=== PATIENT | male | born 1975 | race Two or more races ===

== ENCOUNTER 2024-07-03 17:04 | Inpatient (IN) | payer MEDICAID, OTHER ==
[~2024-07-03] VITALS: Ht 167.6 cm; Wt 68.8 kg
[2024-07-03 18:16] LABS: Basophils # (auto) 0.1 10 ^3/uL (0-0.2); Hemoglobin 16.3 g/dL (13.5-17.5); Lymphocytes # (auto) 2.1 10 ^3/uL (0.4-5.4); Red Blood Cells 4.69 10^6/uL (4.5-5.90)
[2024-07-03 18:18] LABS: Basophils % (auto) 0.5 % (0.0-2.0); Eosinophils # (auto) 0.4 10 ^3/uL (0-0.8); Eosinophils % (auto) 2.4 % (0.0-7.0); Hematocrit 46.2 % (41.0-53.0); Lymphocytes % (auto) 12.2 % (10.0-50.0); Mean Corpuscular Hemoglobin 34.8 pg (28.0-32.0); Mean Corpuscular Hgb Conc. 35.4 g/dL (32.0-36.0); Mean Corpuscular Volume 98.4 fL (80.0-100.0); Monocytes # (auto) 1.3 10 ^3/uL (0-1.3); Monocytes % (auto) 7.6 % (0.0-12.0); Neutrophils # (auto) 13.1 10 ^3/uL (1.6-8.6); Neutrophils % (auto) 77.3 % (37.0-80.0); Platelet Count (auto) 375 10^3/uL (140-450); Red Cell Distribution Width 13.9 % (11.8-14.3); White Blood Cell 16.9 10^3/uL (4.4-10.8)
[2024-07-03 18:34] LABS: Alanine Aminotransferase 34 U/L (7-40); Alkaline Phosphatase 103 U/L (46-116); Anion Gap 10 (5-15); Aspartate Aminotransferase 30 U/L (13-40); Blood Urea Nitrogen 9 mg/dL (9-23); Calcium 9.2 mg/dL (8.7-10.4); Carbon Dioxide 26 mmol/L (20-30); Chloride 108 mmol/L (98-107); Glucose 116 mg/dL (74-106); Lipase 29 U/L (12-53); Potassium 3.7 mmol/L (3.5-5.1); Sodium 144 mmol/L (136-145)
[2024-07-03 18:35] LABS: Albumin 4.6 g/dL (3.2-4.8); Bilirubin, Total 0.9 mg/dL (0.2-1.0); Total Protein 8.2 g/dL (5.7-8.2)
[2024-07-03 20:09] VITALS: PULSE 94; RESP 16; O2SAT 96
[2024-07-03] MEDS: SODIUM CHLORIDE 0.9% 1,000 ML IV ONE (20:15)
[2024-07-03] MEDS: diphenhdrAMINE HCL 50 MG/1 ML VL IV ONE (20:15)
[2024-07-03] MEDS: METOCLOPRAMIDE HCL 5MG/ml INJ 2ml VIAL IV ONE (20:15)
[2024-07-03] MEDS: GLUCAGON EMERG KIT 1mg/1ml IV ONE (21:35)
[2024-07-03 22:20] VITALS: PULSE 82; RESP 16; O2SAT 96
[2024-07-04] VITALS (10 sets, daily range): BP systolic 125–149; BP diastolic 79–95; PULSE 76–91; RESP 14–18; TEMP 97.7–98.9; O2SAT 92–100
[2024-07-04] MEDS: ONDANSETRON HCL 4 MG/2 ML VIAL IV PRN (00:37)
[2024-07-04] MEDS: SODIUM CHLORIDE 0.9% 1,000 ML IV SCH (00:37)
[2024-07-04 06:27] LABS: Chloride 112 mmol/L (98-107); Potassium 3.7 mmol/L (3.5-5.1); Sodium 146 mmol/L (136-145)
[2024-07-04 06:28] LABS: Anion Gap 7 (5-15); Carbon Dioxide 27 mmol/L (20-30)
[2024-07-04 06:33] LABS: BUN/Creatinine Ratio 11.1 (10.0-20.0); Basophils # (auto) 0 10 ^3/uL (0-0.2); Basophils % (auto) 0.2 % (0.0-2.0); Blood Urea Nitrogen 9 mg/dL (9-23); Eosinophils % (auto) 0.8 % (0.0-7.0); Glucose 117 mg/dL (74-106); Monocytes # (auto) 1.3 10 ^3/uL (0-1.3)
[2024-07-04 06:39] LABS: Eosinophils # (auto) 0.1 10 ^3/uL (0-0.8); Hematocrit 45.9 % (41.0-53.0); Lymphocytes # (auto) 1.8 10 ^3/uL (0.4-5.4); Lymphocytes % (auto) 9.1 % (10.0-50.0); Mean Corpuscular Hemoglobin 35.1 pg (28.0-32.0); Mean Corpuscular Volume 100.5 fL (80.0-100.0); Monocytes % (auto) 6.5 % (0.0-12.0); Neutrophils # (auto) 16.2 10 ^3/uL (1.6-8.6); Neutrophils % (auto) 83.4 % (37.0-80.0); Nucleated Red Blood Cells % 0.1 %; Platelet Count (auto) 342 10^3/uL (140-450); Red Blood Cells 4.56 10^6/uL (4.5-5.90); Red Cell Distribution Width 13.7 % (11.8-14.3); White Blood Cell 19.4 10^3/uL (4.4-10.8)
[2024-07-04] MEDS ORDERED: LORazepam 2MG/ML-1ML VIAL IV PRN (09:00)
[2024-07-04 09:10] LABS: Blood Alcohol < 3.0 mg/dL (<10); Triglycerides 106 mg/dL (< 150)
[2024-07-04 09:11] LABS: LDL Cholesterol 109 mg/dL (< 100)
[2024-07-04 09:12] LABS: Cholesterol 154 mg/dL (< 200); HDL Cholesterol 32 mg/dL (40-59)
[2024-07-04 09:13] LABS: INR 1.09 (0.9-1.15); Partial Thromboplastin Time 28.1 SEC (24.5-34.5); Prothrombin Time 11.5 sec (9.3-11.8)
[2024-07-04] MEDS ORDERED: fentaNYL CITRATE 100 MCG/2 ML VL ONE (10:07)
[2024-07-04] MEDS ORDERED: PROPOFOL 10 MG/ML 20 ML IV ONE (10:07)
[2024-07-04] MEDS ORDERED: ceFAZolin 1GM VL ONE (10:22)
[2024-07-04] MEDS: THIAMINE 100mg/ml INJ (200mg/2ml VIAL) IV ONE (11:14)
[2024-07-04] MEDS: PANTOPRAZOLE 40 MG/10 ML VIAL INJ IV ONE (11:16)
[2024-07-04] MEDS: NYSTATIN (MOUTH-THROAT) 500,000 UNITS/5 ML SUSP MT SCH (11:18)
[2024-07-04] MEDS: SUCRALFATE 1 GM/10 ML ORAL SUSP PO SCH (11:19)
[2024-07-04] MEDS ORDERED: SUCRALFATE 1 GM/10 ML ORAL SUSP GT SCH (11:30)
[2024-07-04] MEDS: PIPERACILLIN-TAZOB 3.375GM 100 ML IV ONE (12:28)
[2024-07-04] MEDS: SOD CHL 0.45% 1,000 ML IV SCH (12:29)
[2024-07-04] MEDS: FOLIC ACID 1 MG TAB PO SCH (13:33)
[2024-07-04] MEDS: MULTIPLE VITAMIN TAB PO SCH (13:33)
[2024-07-04] MEDS: THIAMINE HCL 100 MG TAB PO SCH (13:34)
[2024-07-04 15:41] LABS: COVID19 ANTIGEN SOFIA FIA NEGATIVE (NEGATIVE)
[2024-07-04 17:17] LABS: Urine Bacteria None Seen /hpf (None Seen)
[2024-07-04 17:33] LABS: Urine Blood Negative /uL (Negative); Urine Clarity Clear (Clear); Urine Color Colorless (Yellow); Urine Protein, UAD Negative (Negative); Urine Specific Gravity 1.003 (1.001-1.035); Urine Urobilinogen Normal (Negative); Urine WBC <1 /hpf (0 - 3); Urine pH 6.5 (5.0-9.0)
[2024-07-04 17:35] LABS: Amphetamine Screen, Urine Pos (NEGATIVE); Barbiturate Scree,Urine Neg (NEGATIVE); Benzodiazephine Screen, Urine Neg (NEGATIVE); Cocaine Screen, Urine Neg (NEGATIVE); Opiate Scree,Urine Neg (NEGATIVE); Phencyclidine Screen, Urine Neg (NEGATIVE)
[2024-07-04 17:36] LABS: Cannabinoid Screen, Urine Neg (NEGATIVE)
[2024-07-04] MEDS ORDERED: FOLIC ACID 1 MG, MULTIPLE VITAMIN 10 ML, MAGNESIUM SULF SDV 50% 8 MEQ, THIAMINE INJ 100... INJ SCH (18:00)
[2024-07-04] MEDS: PIPERACILLIN-TAZOB 3.375GM 100 ML IV SCH (20:27)
[2024-07-04] MEDS: PANTOPRAZOLE 40 MG/10 ML VIAL INJ IV SCH (20:39)
[2024-07-05] VITALS (7 sets, daily range): BP systolic 126–147; BP diastolic 82–89; PULSE 76–90; RESP 16–18; TEMP 97.6–98.3; O2SAT 93–98
[2024-07-05 06:47] LABS: Alanine Aminotransferase 32 U/L (7-40); Albumin 3.9 g/dL (3.2-4.8); Alkaline Phosphatase 86 U/L (46-116); Anion Gap 5 (5-15); Aspartate Aminotransferase 37 U/L (13-40); Calcium 8.6 mg/dL (8.7-10.4); Carbon Dioxide 29 mmol/L (20-30); Chloride 111 mmol/L (98-107); Glucose 128 mg/dL (74-106); Potassium 3.6 mmol/L (3.5-5.1); Sodium 145 mmol/L (136-145)
[2024-07-05 06:48] LABS: Bilirubin, Total 0.7 mg/dL (0.2-1.0)
[2024-07-05 06:49] LABS: Blood Urea Nitrogen < 5 mg/dL (9-23)
[2024-07-05 06:57] LABS: Basophils # (auto) 0.1 10 ^3/uL (0-0.2); Basophils % (auto) 0.4 % (0.0-2.0); Hemoglobin 14.9 g/dL (13.5-17.5); Lymphocytes % (auto) 14.8 % (10.0-50.0); Neutrophils % (auto) 73.4 % (37.0-80.0)
[2024-07-05 06:58] LABS: BUN/Creatinine Ratio 6.3 (10.0-20.0)
[2024-07-05 07:00] LABS: Eosinophils # (auto) 0.5 10 ^3/uL (0-0.8); Eosinophils % (auto) 3.1 % (0.0-7.0); Hematocrit 44.2 % (41.0-53.0); Lymphocytes # (auto) 2.3 10 ^3/uL (0.4-5.4); Mean Corpuscular Hemoglobin 34.2 pg (28.0-32.0); Mean Corpuscular Hgb Conc. 33.7 g/dL (32.0-36.0); Mean Corpuscular Volume 101.6 fL (80.0-100.0); Monocytes # (auto) 1.3 10 ^3/uL (0-1.3); Monocytes % (auto) 8.3 % (0.0-12.0); Neutrophils # (auto) 11.5 10 ^3/uL (1.6-8.6); Platelet Count (auto) 303 10^3/uL (140-450); Red Blood Cells 4.35 10^6/uL (4.5-5.90); Red Cell Distribution Width 14.2 % (11.8-14.3); White Blood Cell 15.6 10^3/uL (4.4-10.8)
[2024-07-05] MEDS ORDERED: cefTRIAXone 1GM/50ML D5W 50 ML IV SCH (09:00)
[2024-07-05] MEDS ORDERED: PANTOPRAZOLE 40 MG/10 ML VIAL INJ IV SCH (10:00)
[2024-07-05] MEDS: NICOTINE 21MG/24 HR TOPICAL PATCH TD ONE (10:32)
[2024-07-05] MEDS ORDERED: SUCR1SUS26 PO (11:37)
[2024-07-05] MEDS ORDERED: PANT40TA2 PO (11:37)
[2024-07-05] MEDS ORDERED: NIC21P TD (11:40)
[2024-07-05] MEDS ORDERED: MULTTAB99 PO (11:40)
[2024-07-05] MEDS ORDERED: FOLI-119 PO (11:40)
[2024-07-05] MEDS ORDERED: NYS5LQ MT (11:40)
[2024-07-05] MEDS ORDERED: AUG875T PO (11:40)
[2024-07-06] MEDS ORDERED: NICOTINE 21MG/24 HR TOPICAL PATCH TD SCH (10:00)
[2024-07-06] MEDS ORDERED: MAGNESIUM OXIDE 400 MG TAB PO SCH (14:00)
[2024-07-09 08:06] LABS: Vitamin B1, Whole Blood 269.6 nmol/L (66.5-200.0)
== END 2024-07-05 17:47 | disposition home or self-care (01) | DRG 254 ==
LOC: ER 17:04 → EDBD 17:04 → OVERFLOW 22:14 → CENTRAL 22:14
PROVIDERS: ADMIT Internal Medicine Pulmonary Disease; ATTEND Internal Medicine Pulmonary Disease
PROC: 0DB68ZX Excision of Stomach, Via Natural or Artificial Opening Endoscopic, Diagnostic (ICD-10-PCS; 2024-07-04)
PROC: 0DB58ZX Excision of Esophagus, Via Natural or Artificial Opening Endoscopic, Diagnostic (ICD-10-PCS; 2024-07-04)
PROC: 0DB98ZX Excision of Duodenum, Via Natural or Artificial Opening Endoscopic, Diagnostic (ICD-10-PCS; principal; 2024-07-04 10:10)
DX: T18.128A Food in esophagus causing other injury, initial encounter (principal); J69.0 Pneumonitis due to inhalation of food and vomit; K26.9 Duodenal ulcer, unspecified as acute or chronic, without hemorrhage or perforation; K22.10 Ulcer of esophagus without bleeding; K25.9 Gastric ulcer, unspecified as acute or chronic, without hemorrhage or perforation; Z20.822 Contact with and (suspected) exposure to COVID-19; K44.9 Diaphragmatic hernia without obstruction or gangrene; I10 Essential (primary) hypertension; F10.10 Alcohol abuse, uncomplicated; F17.200 Nicotine dependence, unspecified, uncomplicated; Y90.9 Presence of alcohol in blood, level not specified; K21.00 Gastro-esophageal reflux disease with esophagitis, without bleeding
CPT/HCPCS: 36415; 71045; 74176; 80048; 80053; 80061; 80307; 80320; 81001; 83605; 83690; 83735; 84425; 85025; 85610; 85730; 86703; 87426; G0378; J0690; J2405; J2470; J2543; J2704